=== PATIENT | female | born 1995 | race Two or more races ===

== ENCOUNTER 2018-12-11 03:03 | Emergency (ER) | payer MEDICAID ==
[~2018-12-11] VITALS: Ht 154.9 cm; Wt 68.9 kg
[2018-12-11 03:35] VITALS: BP 122/68
[2018-12-11] MEDS ORDERED: ACETAMINOPHEN 500 MG TAB PO ONE (05:15)
== END 2018-12-11 05:39 | disposition home or self-care (01) ==
LOC: ER 03:05
DX: H66.93 Otitis media, unspecified, bilateral (principal)